=== PATIENT | male | born 1965 | race Caucasian/White ===

== ENCOUNTER 2022-03-24 10:29 | Day surgery (SDC) | payer BC ==
[~2022-03-24 10:29] MED LIST: Propofol 200 MG/20 ML SDV ONE
[2022-03-24] MEDS ORDERED: Propofol 200 MG/20 ML SDV ONE (10:50)
[2022-03-24] MEDS ORDERED: Lidocaine 2% 100 MG/5 ML Syringe IV ONE (11:00)
[2022-03-24] MEDS ORDERED: Sodium Chloride 0.9% 10 ML Syringe FLUSH PRN (11:00)
[2022-03-24] MEDS ORDERED: Lactated Ringers 1,000 ML IV SCH (11:00)
[2022-03-24] MEDS ORDERED: Lidocaine 2% 5 ML SDV ONE (11:00)
[2022-03-24 12:12] VITALS: BP 149/82; PULSE 72
== END 2022-03-24 12:40 | disposition home or self-care (01) ==
LOC: LL.SDS 10:29
PROVIDERS: ATTEND Surgery
DX: Z12.11 Encounter for screening for malignant neoplasm of colon (principal); K62.1 Rectal polyp; K22.719 Barrett's esophagus with dysplasia, unspecified; K51.90 Ulcerative colitis, unspecified, without complications; K44.9 Diaphragmatic hernia without obstruction or gangrene; I10 Essential (primary) hypertension; K27.9 Peptic ulcer, site unspecified, unspecified as acute or chronic, without hemorrhage or perforation; K21.9 Gastro-esophageal reflux disease without esophagitis; E78.2 Mixed hyperlipidemia; J45.20 Mild intermittent asthma, uncomplicated; J30.2 Other seasonal allergic rhinitis; G47.33 Obstructive sleep apnea (adult) (pediatric); E66.3 Overweight; Z79.899 Other long term (current) drug therapy; Z68.28 Body mass index [BMI] 28.0-28.9, adult
CPT/HCPCS: J2704; J7120